=== PATIENT | female | born 1960 | race Caucasian/White ===

== ENCOUNTER → 2019-05-06 | Day surgery (SDC) | payer MEDICAID ==
[~2019-05-06] MED LIST: Albuterol 0.083% 2.5 MG/3 ML Neb Soln NEB ONE; Dexamethasone 4 MG/ML SDV ONE; Lactated Ringers 1,000 ML IV SCH; Lactated Ringers 1,000 ML ONE; Lidocaine 1% 4 ML ONE; Lidocaine 1%/Sod Bicarbonate in NS 8.4% 1 ML Syringe IDERM PRN; Propofol 200 MG/20 ML SDV ONE; Sodium Chloride 0.9% 10 ML Syringe FLUSH PRN; fentaNYL 100 MCG/2 ML SDV ONE
--- NOTE | 2019-05-06 10:19 | PCM.PREANE ---
Preanesthetic Assessment - Anesthesia/Transfusion/Family Hx Anesthesia History: Prior Anesthesia Without Reaction Family History of Anesthesia Reaction: No - Review of Systems General: No Symptoms Pulmonary: Cough, Sputum (Chronic cough, productive in the mornings. Smoker 1 ppd. ) Cardiovascular: No Symptoms Gastrointestinal: No Symptoms Neurological: No Symptoms Other: Reports: Diabetes (Type II, Blood Glucose 201mg/dl) - Physical Assessment NPO Status Date: 05/06/19 NPO Status Time: 01:00 O2 Sat by Pulse Oximetry: 95 Respiratory Rate: 16 Vital Signs: Last Vital Signs Temp 36.6 C 05/06/19 09:00 Pulse 102 H 05/06/19 09:00 Resp 16 05/06/19 09:00 BP 131/79 05/06/19 09:00 Pulse Ox 95 05/06/19 09:00 Height: 1.5 m Weight: 80.739 kg ASA Class: 2 Mental Status: Alert & Oriented x3 Airway Class: Mallampati = 2 Dentition: Reports: Normal Dentition Thyro-Mental Finger Breadths: 3 Mouth Opening Finger Breadths: 2 ROM/Head Extension: Full Lungs: Clear to Auscultation, Normal Respiratory Effort, Decreased Breath Sounds Cardiovascular: Regular Rate, Regular Rhythm - Lab Values: Laboratory Last Values POC Glucose 201 mg/dL (80-115) H 05/06/19 09:24 - Allergies Allergies/Adverse Reactions: Allergies Allergy/AdvReac Type Severity Reaction Status Date / Time No Known Allergies Allergy Verified 03/24/15 15:10 - Acknowledgements Anesthesia Type Planned: MAC Pt an Appropriate Candidate for the Planned Anesthesia: Yes Alternatives and Risks of Anesthesia Discussed w Pt/Guardian: Yes Pt/Guardian Understands and Agrees with Anesthesia Plan: Yes PreAnesthesia Questionnaire Cardiovascular History: Reports: High Cholesterol, Hypertension Genitourinary History: Reports: Renal Calculus Neurological History: Reports: Neuropathy, Diabetic Psychiatric History: Reports: None Endocrine/Metabolic History: Reports: Diabetes, Type II Oncologic (Cancer) History: Reports: Cervix - Past Surgical History GI Surgical History: Reports: Colostomy Other GI Surgeries/Procedures: reanotomosis of colostomty about 12 years; Female Surgical History: Reports: Hysterectomy - HOME MEDS Home Medications: Home Meds Celecoxib 100 mg PO BID 03/24/15 [History] Lisinopril [Prinivil] 10 mg PO DAILY 03/24/15 [History] atorvaSTATin [Lipitor] 40 mg PO DAILY 06/08/16 [History] Aspirin [Adult Low Dose Aspirin EC] 81 mg PO DAILY 05/06/19 [History] Dicyclomine [Bentyl] 1 cap PO ASDIRECTED PRN 05/06/19 [History] Flaxseed Oil [Flaxseed] 1 cap PO DAILY 05/06/19 [History] [place]-3/DHA/Epa/Fish Oil [[place] 3 500 Softgel] 1 cap PO DAILY 05/06/19 [History] Triamterene/Hydrochlorothiazid [Triamterene-HCTZ 37.5-25 MG] 1 cap PO DAILY 06/17 [History] sitaGLIPtin Phos/Metformin HCl [Janumet 50-1,000 MG] 50 - 1,000 mg PO BID [History] - CURRENT (IN HOUSE) MEDS Current Meds: Current Medications Albuterol (Proventil Neb Soln) 2.5 mg NEB ONETIME ONE Stop: 05/06/19 10:13 Lactated Ringer's (Ringers, Lactated) 1,000 mls @ 125 mls/hr IV ASDIRECTED EZEKIEL Stop: 05/06/19 23:00 Last Admin: 05/06/19 09:20 Dose: 125 mls/hr Lidocaine/Sodium Bicarbonate (Buffered Lidocaine 1% In Ns 8.4%) 0.25 ml IDERM ONETIME PRN PRN Reason: Prior to IV Start Stop: 05/06/19 18:00 Last Admin: 05/06/19 09:20 Dose: 0.25 ml Sodium Chloride (Saline Flush) 10 ml FLUSH ASDIRECTED PRN PRN Reason: Keep Vein Open Stop: 05/06/19 18:00
--- NOTE | 2019-05-06 12:17 | PCM.OPNOTE ---
- General Post-Op/Procedure Note Date of Surgery/Procedure: 05/06/19 Operative Procedure(s): Colonoscopy Findings: 1. Ascending colon polyps x2 2. Large (2cm) sessile polyp in transverse colon- incompletely resected 3. Transverse colon polyp 4. Sessile 1.2cm transverse colon polyp Pre Op Diagnosis: family history of colon cancer in a 1st degree relative Post-Op Diagnosis: same Anesthesia Technique: MAC Primary Surgeon: Sabrina Pelletier Anesthesia Provider: Inga Torres Pathology: 1. Ascending colon polyp x2 2. Partial transverse colon polyp 3. Transverse colon polyp 4. Transverse colon polyp Fluid Replacement, Intraop: 1,300 Output, Urine Amount: 0 EBL in mLs: 0 Complications: none apparent Condition: Good
[2019-05-06 12:18] VITALS: BP 116/71
--- NOTE | 2019-05-06 12:18 | PCM.PRNOTE ---
- Free Text/Narrative Note: Operative Report Date of Surgery/Procedure: May 06, 2019 Operative Procedure: Colonoscopy to cecum Pre Op Diagnosis: Colon cancer in a first-degree relative Post-Op Diagnosis: Same Surgeon: Sabrina Pelletier Anesthesia Technique: MAC Anesthesia Provider: Inga Torres CRNA IV Fluid Replacement, Intraop: 1300cc Output, Urine Amount: 0cc EBL : 0cc Findings: 1. Ascending colon polyps x2 2. Large (2cm) sessile polyp in transverse colon- incompletely resected 3. Transverse colon polyp 4. Sessile 1.2cm transverse colon polyp 5. Diverticulosis Specimens: 1. Ascending colon polyp x2 2. Partial transverse colon polyp 3. Transverse colon polyp 4. Transverse colon polyp Indication: The patient is a 59year-old lady who presented to the outpatient clinic requesting high risk colorectal cancer screening. The patient has a history of colon cancer in her first-degree relatives; her sister was diagnosed at age 45, and possible complications of colon cancer. We discussed the procedure of a colonoscopy including the polypectomy and biopsy. Risks of bleeding and perforation were discussed, the patient understood and wished to proceed. Written and consent was obtained Description of the procedure: The patient was brought to the endoscopy suite and placed in the left lateral decubitus position. Appropriate monitors were applied. The patient was given MAC anesthesia. An anorectal examination was performed, revealing no significant abnormality. The scope was placed into the rectum and advanced to cecum with no significant difficulty. The patients cecum was entered, and the ileocecal valve and appendiceal orifice were identified and normal. At this point, the scope was withdrawn, paying careful attention to the mucosa. The patient had good bowel prep, allowing for visualization of 85-90 % of the mucosa. Two small flat polyps were seen in the ascending colon, each measuring 2-3 mm. These were each removed using jumbo cold biopsy forceps. In the proximal transverse colon at approximately 80 cm, a large sessile polyp was noted on a fold. This was approximately 2 cm. We attempted removal using jumbo cold biopsy forceps, and this brought the polyp forward into the field. We then attempted resection with a hot snare. Part of the polyp was removed. However, the large resected specimen was lost in the colon and could not be retrieved. We then attempted to take additional pieces using the jumbo cold biopsy forceps. Due to the large size and difficult location of this polyp, it was difficult technically to remove the polyp. The patient also did not relax well throughout the procedure and the colon spasmed easily, pushing the scope way from the site of interest. The area was tattooed with Nicki ink and we proceeded to inspect the remaining colon. A 3 mm sessile polyp was noted in the transverse colon, this was removed using jumbo cold biopsy forceps. In the more distal transverse colon a 1.2 cm sessile polyp was seen. This was resected in 2 pieces using the hot snare. The pieces were successfully retrieved. Two additional pieces were taken at the edges using a jumbo cold biopsy forceps. This area was also tattooed using Nicki ink due to its large size , so that the site can be reexamined at a later date. Diverticulosis was noted scattered throughout the colon. The anastomotic site was intact without evidence of any abnormality. In the rectum, the scope was retroflexed and no abnormalities were noted, except for some hemorrhoidal tissue. The scope was withdrawn and the procedure terminated. The patient tolerated the procedure well. Complications: none apparent Condition: Good, transported to PACU in stable condition Sabrina Pelletier MD General Surgery
--- NOTE | 2019-05-06 12:18 | PCM48HPAN ---
Post Anesthesia Note - EVALUATION WITHIN 48HRS OF ANESTHETIC Vital Signs in Normal Range: Yes Patient Participated in Evaluation: Yes Respiratory Function Stable: Yes Airway Patent: Yes Cardiovascular Function Stable: Yes Hydration Status Stable: Yes Pain Control Satisfactory: Yes Nausea and Vomiting Control Satisfactory: Yes Mental Status Recovered: Yes Pulse Rate: 99 SaO2: 93 (2L/NC) Resp Rate: 16 Temperature: 97.6 C Blood Pressure: 116/71
== END | disposition home or self-care (01) ==
LOC: JD.SDS 08:45
PROVIDERS: ATTEND Surgery
DX: Z12.11 Encounter for screening for malignant neoplasm of colon (principal); D12.2 Benign neoplasm of ascending colon; D12.3 Benign neoplasm of transverse colon; K57.30 Diverticulosis of large intestine without perforation or abscess without bleeding; Z80.0 Family history of malignant neoplasm of digestive organs; I10 Essential (primary) hypertension; E11.9 Type 2 diabetes mellitus without complications; E78.00 Pure hypercholesterolemia, unspecified; Z79.82 Long term (current) use of aspirin; Z79.899 Other long term (current) drug therapy; F17.210 Nicotine dependence, cigarettes, uncomplicated; Z87.442 Personal history of urinary calculi
CPT/HCPCS: 45380; 45381; 45385; 82962; 94640; J1100; J2001; J2704; J3010; J7120; 00812

== ENCOUNTER 2019-08-29 07:33 | Day surgery (SDC) | payer MEDICAID ==
[~2019-08-29 07:33] MED LIST changes: -Albuterol 0.083% 2.5 MG/3 ML Neb Soln NEB ONE; -Dexamethasone 4 MG/ML SDV ONE; -Lactated Ringers 1,000 ML ONE; -Lidocaine 1% 4 ML ONE; -Propofol 200 MG/20 ML SDV ONE; -fentaNYL 100 MCG/2 ML SDV ONE
--- NOTE | 2019-08-29 08:30 | PCM.PREANE ---
Preanesthetic Assessment - Procedure Proposed Procedure: colonoscopy - Anesthesia/Transfusion/Family Hx Anesthesia History: Prior Anesthesia Without Reaction Family History of Anesthesia Reaction: No Transfusion History: No Prior Transfusion(s) Intubation History: Unknown - Review of Systems General: No Symptoms Pulmonary: No Symptoms Cardiovascular: No Symptoms Gastrointestinal: No Symptoms Neurological: No Symptoms Other: Reports: None - Physical Assessment NPO Status Date: 08/28/19 NPO Status Time: 02:30 Height: 1.5 m Weight: 79 kg ASA Class: 3 Mental Status: Alert & Oriented x3 Dentition: Reports: Dentures (upper, bottom adentulous ) Thyro-Mental Finger Breadths: 3 Mouth Opening Finger Breadths: 5 ROM/Head Extension: Full Lungs: Normal Respiratory Effort, Decreased Breath Sounds (bilateral ) Cardiovascular: Regular Rate, Regular Rhythm - Allergies Allergies/Adverse Reactions: Allergies Allergy/AdvReac Type Severity Reaction Status Date / Time No Known Allergies Allergy Verified 08/25/19 10:42 - Blood Blood Available: No - Anesthesia Plan Pre-Op Medication Ordered: None - Acknowledgements Anesthesia Type Planned: MAC (note completed by Yanick Silva CRNA ) Pt an Appropriate Candidate for the Planned Anesthesia: Yes Alternatives and Risks of Anesthesia Discussed w Pt/Guardian: Yes Pt/Guardian Understands and Agrees with Anesthesia Plan: Yes PreAnesthesia Questionnaire HEENT History: Reports: Other (See Below) Other HEENT History: Full upper and lower dentures (patient doesn't wear lowers) Cardiovascular History: Reports: High Cholesterol, Hypertension, PVD Respiratory History: Reports: None Gastrointestinal History: Reports: Hemorrhoids, Other (See Below) Other Gastrointestinal History: Diverticulitis, adenomatous colon polyp Genitourinary History: Reports: Renal Calculus [employer] History: Reports: None Musculoskeletal History: Reports: Other (See Below) Other Musculoskeletal History: Carpal tunnel syndrome Neurological History: Reports: None Psychiatric History: Reports: None Endocrine/Metabolic History: Reports: Diabetes, Type II Hematologic History: Reports: None Immunologic History: Reports: None Oncologic (Cancer) History: Reports: Cervix Dermatologic History: Reports: None - Past Surgical History Head Surgeries/Procedures: Reports: None HEENT Surgical History: Reports: Tonsillectomy, Other (See Below) Other HEENT Surgeries/Procedures: All teeth exracted Cardiovascular Surgical History: Reports: None Respiratory Surgical History: Reports: None GI Surgical History: Reports: Appendectomy, Cholecystectomy, Colonoscopy, Other (See Below) Other GI Surgeries/Procedures: Partial colectomy with coloproctostomy, colostomy takedown, hernia repair Female Surgical History: Reports: Hysterectomy Endocrine Surgical History: Reports: None Neurological Surgical History: Reports: None Musculoskeletal Surgical History: Reports: None Oncologic Surgical History: Reports: Other (See Below) Other Oncologic Surgeries/Procedures: Hysterectomy with BS Dermatological Surgical History: Reports: None - SUBSTANCE USE Smoking Status *Q: Current Every Day Smoker Tobacco Use Within Last Twelve Months: Cigarettes Second Hand Smoke Exposure: Yes Days Per Week of Alcohol Use: 7 Number of Drinks Per Day: 2 Total Drinks Per Week: 14 Recreational Drug Use History: No - HOME MEDS Home Medications: Home Meds Celecoxib 100 mg PO BID PRN 03/24/15 [History] Lisinopril [Prinivil] 10 mg PO DAILY 03/24/15 [History] atorvaSTATin [Lipitor] 40 mg PO DAILY 06/08/16 [History] Aspirin [Adult Low Dose Aspirin EC] 81 mg PO DAILY 05/06/19 [History] Dicyclomine [Bentyl] 1 cap PO QID PRN 05/06/19 [History] Triamterene/Hydrochlorothiazid [Triamterene-HCTZ 37.5-25 MG] 1 cap PO DAILY 06/17 [History] sitaGLIPtin Phos/Metformin HCl [Janumet 50-1,000 MG] 50 - 1,000 mg PO BID [History] Acetaminophen/Codeine [Tylenol with Codeine No.3 300MG/30MG] 1 - 2 tab PO Q4H PRN 08/25/19 [History] [place]-3/DHA/Epa/Fish Oil [[place]-3 Fish Oil 1,000 MG Sfgl] 1,000 mg PO DAILY [History] - CURRENT (IN HOUSE) MEDS Current Meds: Current Medications Lactated Ringer's (Ringers, Lactated) 1,000 mls @ 125 mls/hr IV ASDIRECTED EZEKIEL Stop: 08/29/19 23:00 Last Admin: 08/29/19 08:10 Dose: 125 mls/hr Lidocaine/Sodium Bicarbonate (Buffered Lidocaine 1% In Ns 8.4%) 0.25 ml IDERM ONETIME PRN PRN Reason: Prior to IV Start Stop: 08/29/19 18:00 Sodium Chloride (Saline Flush) 10 ml FLUSH ASDIRECTED PRN PRN Reason: Keep Vein Open Stop: 08/29/19 18:00
[2019-08-29] MEDS ORDERED: Lidocaine 1% 4 ML ONE (08:36)
[2019-08-29] MEDS ORDERED: Propofol 200 MG/20 ML SDV ONE (08:37)
[2019-08-29] MEDS ORDERED: Midazolam 1 MG/ML 2 ML SDV ONE (09:08)
--- NOTE | 2019-08-29 09:53 | PCM48HPAN ---
Post Anesthesia Note - EVALUATION WITHIN 48HRS OF ANESTHETIC Vital Signs in Normal Range: Yes Patient Participated in Evaluation: Yes Respiratory Function Stable: Yes Airway Patent: Yes Cardiovascular Function Stable: Yes Hydration Status Stable: Yes Pain Control Satisfactory: Yes Nausea and Vomiting Control Satisfactory: Yes Mental Status Recovered: Yes Vital Signs: 92/69. 94% on RA, 99, 18, 96.5 at 0945 Last Vital Signs 37.1 C 08/29/19 07:55 Pulse 96 08/29/19 07:55 Resp 20 08/29/19 07:55 BP 102/80 08/29/19 07:55 Pulse Ox 96 08/29/19 07:55
[2019-08-29 12:08] VITALS: BP 111/82; PULSE 85
--- NOTE | 2019-08-29 12:46 | OR ---
DATE OF OPERATION: 08/29/2019 SURGEON: Mary Kay Myrick MD PREOPERATIVE DIAGNOSIS: Incompletely removed colonic polyps. POSTOPERATIVE DIAGNOSIS: Normal colonoscopy. OPERATION PERFORMED: Colonoscopy. ANESTHESIA: Monitored anesthesia. COMPLICATIONS: None. INDICATION AND CONSENT: Ms. Schofield is a 59-year-old female with prior history of perforated diverticulitis, status post left hemicolectomy, ileostomy with ileostomy reversal several years ago. The patient had a colonoscopy back in April that noted several polyps that were removed. However, there was at least 1 polyp that was incompletely removed. This was noted to be in the transverse as well as some probably in the descending colon. Because of this, the patient was advised to undergo another repeat colonoscopy for removal of these polyps. The patient was seen in the surgical office, evaluated, and agreed to proceed with the procedure. Informed consent was obtained. DESCRIPTION OF PROCEDURE: The patient was brought to the procedure room and placed in the left lateral decubitus position. Following induction of anesthesia, procedure was began. We began by performing a digital rectal examination. There were no abnormalities besides some redness around the anal margin. Sphincter tone was normal. Then, the scope was inserted, advanced all the way into the cecum. The cecal valve and appendiceal orifice were photographed. Then, the scope was slowly withdrawn taking care to look at all surfaces of the colon including behind the folds, unable to detect where these polyps are since the polyps were not tattooed in the prior colonoscopy. The scope was withdrawn slowly through the ascending colon, through the transverse colon as well as through the descending colon. There were diverticulosis in the ascending as well as the descending colon, but there were no polyps that were noted throughout this exam. Despite careful irrigation to make sure all the mucosa was examined, there was no obvious polyps that were seen anywhere throughout the exam. On retroflexion, there were no abnormalities. The scope was then withdrawn and the patient was awoken from anesthesia and discharged from the hospital. However, I discussed the lack of any findings in this colonoscopy and asked the patient to return to clinic and have a repeat colonoscopy in 1 year for further surveillance to make sure there are still no other polyps. Of note, the rectocolonic anastomosis was also noted in the distal rectum and this area was also photographed. ESTIMATED BLOOD LOSS: MMODAL /[id number]
== END 2019-08-29 10:47 | disposition home or self-care (01) ==
LOC: JD.SDS 07:33
PROVIDERS: ATTEND Surgery
DX: K63.5 Polyp of colon (principal); K57.30 Diverticulosis of large intestine without perforation or abscess without bleeding; E78.00 Pure hypercholesterolemia, unspecified; I10 Essential (primary) hypertension; E11.9 Type 2 diabetes mellitus without complications; F17.210 Nicotine dependence, cigarettes, uncomplicated; Z87.19 Personal history of other diseases of the digestive system; Z90.49 Acquired absence of other specified parts of digestive tract; Z93.2 Ileostomy status; Z86.010 Personal history of colon polyps; Z88.8 Allergy status to other drugs, medicaments and biological substances; Z79.82 Long term (current) use of aspirin; Z79.84 Long term (current) use of oral hypoglycemic drugs
CPT/HCPCS: 45378; J2001; J2250; J2704; J7120

== ENCOUNTER 2025-02-24 18:58 | Emergency (ER) | payer MEDICARE, MEDICAID ==
[2025-02-24] MEDS ORDERED: Sodium Chloride 0.9% 10 ML Syringe FLUSH PRN (19:15)
[2025-02-24 19:24] LABS: BASOPHILS ABSOLUTE AUTO 0.1 K/mm3 (0.0-0.2); BASOPHILS PERCENT AUTO 0.8 % (0.0-1.0); EOSINOPHILS ABSOLUTE AUTO 0.5 K/mm3 (0.0-0.4); HEMATOCRIT 41.3 % (37.0-47.0); HEMOGLOBIN 13.6 gm/dl (12.0-16.0); IMMATURE GRAN ABSOLUTE AUTO 0.08 K/mm3 (0.00-0.05); IMMATURE GRAN PERCENT AUTO 0.7 % (0.0-0.4); LYMPHOCYTES ABSOLUTE AUTO 2.8 K/mm3 (1.0-4.8); LYMPHOCYTES PERCENT AUTO 23.4 % (24.0-44.0); MEAN CORPUSCULAR HEMOGLOBIN 31.1 pg (28.0-32.0); MEAN CORPUSCULAR HGB CONC 32.9 g/dl (32.0-36.0); MEAN CORPUSCULAR VOLUME 94.5 fl (83.0-99.0); MEAN PLATELET VOLUME 9.4 fl (9.4-12.3); MONOCYTES ABSOLUTE AUTO 0.9 K/mm3 (0.0-0.8); MONOCYTES PERCENT AUTO 7.4 % (0.0-8.0); NEUTROPHILS ABSOLUTE AUTO 7.6 K/mm3 (1.8-7.7); NEUTROPHILS PERCENT AUTO 63.7 % (41.0-71.0); PLATELET COUNT,PLT 207 K/mm3 (150-400); RED BLOOD CELL COUNT 4.37 M/mm3 (4.10-5.30); WHITE BLOOD CELL COUNT,WBC 11.87 K/mm3 (3.9-11.3)
[2025-02-24] MEDS: fentaNYL 100 MCG/2 ML SDV IVPUSH ONE (19:36)
[2025-02-24] MEDS: Aspirin 81 MG Tab.Chew PO ONE (19:36)
[2025-02-24 19:57] LABS: A/G RATIO 0.6 (1-2); ALBUMIN 2.7 g/dl (3.4-5.0); ANION GAP 8.8 (5-15); BILIRUBIN TOTAL 0.5 mg/dL (0.2-1.0); BUN/CREATININE RATIO 9.3 (14-18); CALCIUM 8.8 mg/dL (8.5-10.1); CREATININE 1.4 mg/dL (0.55-1.02); EST CRCL DRUG DOSING (CG) 28.39 mL/min; POTASSIUM,K 3.8 mEq/L (3.5-5.1); PROTEIN TOTAL,TP 7.6 g/dl (6.4-8.2)
[2025-02-24 20:24] VITALS: PULSE 80
[2025-02-24 22:12] VITALS: BP 117/86
== END 2025-02-24 23:04 | disposition home or self-care (01) ==
LOC: JD.ED 18:58
DX: R07.9 Chest pain, unspecified (principal); E78.00 Pure hypercholesterolemia, unspecified; I10 Essential (primary) hypertension; E11.9 Type 2 diabetes mellitus without complications; F17.210 Nicotine dependence, cigarettes, uncomplicated; Z90.710 Acquired absence of both cervix and uterus; Z90.49 Acquired absence of other specified parts of digestive tract; Z79.899 Other long term (current) drug therapy
CPT/HCPCS: 36415; 71045; 80053; 83690; 83880; 84484; 85025; 93005; 96374; 99285; A9270; J3010; 93010; 99284